=== PATIENT | female | born 1980 | race Caucasian/White ===

== ENCOUNTER 2023-12-09 08:50 | Emergency (ER) | payer OTHER, SELFPAY ==
[2023-12-09 08:52] VITALS: BP 138/79
--- NOTE | 2023-12-09 09:11 | ED.GENMED ---
History of Present Illness
General
Chief Complaint: Skin Problem
Source: patient
Exam Limitations: none
Time Seen by Provider: 12/09/23 08:56
Nursing documentation reviewed up to this point in time: agreed with
History of Present Illness
History of Present Illness:
43-year-old female presenting to the emergency department today with concerns of discomfort to the left axilla. Ongoing over the past 2 days. No fevers mild redness to the area mild tenderness. No systemic symptoms.
Past History
Past History
ED Past Medical History: Other (MS )
Social History
Tobacco: Non-smoker
Drug: None
Living: with family
Review of Systems
Review of Systems
Allergies reviewed?: Yes
All Other Systems: ROS reviewed and negative except as documented in HPI and ROS
Phy Exam
Physical Exam
Physical Exam:
GENERAL: Alert , in no apparent distress
EYE: pupils equal and reactive
NECK: Supple, no significant adenopathy.
ENT: o/p clr, mmm.
CARDIAC: Regular rate and rhythm .
LUNGS: Clear breath sounds bilaterally, no acute respiratory distress, no wheezes/rales/rhonchi
ABDOMEN: Soft, without focal tenderness, no r/g, no cvat
NEUROLOGICAL: Alert and oriented, no focal neuro deficits
SKIN: Swelling mild tenderness palpation to the left axilla mild redness. Warm and dry, skin intact.
MUSCULOSKELETAL: No edema, well perfused.
PSYCH: Normal and appropriate interaction.
Course
Orders/Labs/Results
Orders:
Orders
12/09/23 09:10
Doxycycline [Vibramycin] 100 mg PO NOW STA
Vital Signs
Initial and Last Documented VS:
Initial Vital Signs
Temp Pulse Resp BP Pulse Ox
98.3 F 98 16 138/79 98
12/09/23 08:52 12/09/23 08:52 12/09/23 08:52 12/09/23 08:52 12/09/23 08:52
Last Documented Vital Signs
Temp Pulse Resp BP Pulse Ox
98.3 F 98 16 138/79 98
12/09/23 08:52 12/09/23 08:52 12/09/23 08:52 12/09/23 08:52 12/09/23 08:52
MDM/Problems Addressed
MDM/Problems Addressed:
43-year-old female presenting to the emergency department today with concerns of left axillary discomfort and swelling over the past 2 days. Some mild redness to the area and tenderness. Ultrasound was used at the area without any evidence of
drainable abscess but some evidence of inflammation to the area. Patient was started on antibiotics otherwise advised for close outpatient follow-up. Return precautions given.
*Critical Care Note
Total Time (30-74mins, 75-104mins- exclusive of procedures): Not Applicable
ED Attending Note
-
Portions of this chart may have been created with voice recognition software.� Occasional wrong word or��sound alike� substitutions may have occurred due to the inherent limitations of voice recognition software.
Discharge Plan
Departure
Patient Disposition: Home (Routine Discharge)
Date of Disposition: 12/09/23
Time of Disposition: 09:13
Patient with high blood pressure during this ER visit?: No
Condition: Good
Covid-19: Not Applicable
Discharge Problem:
Axillary adenitis
Instructions: Cellulitis (Skin Infection), Adult (DC)
Prescriptions:
New
doxycycline hyclate 100 mg tablet
100 mg PO BID 7 Days Qty: 14 0RF
No Action
ondansetron 8 MG tablet,disintegrating
8 mg PO Q8H PRN (Reason: pain)
hydromorphone 2 MG tablet
2 mg PO Q4HPRN PRN (Reason: pain)
dalfampridine [Ampyra] 10 MG tablet extended release 12 hr
10 mg PO DAILY
Hydrocodone/Acetaminophen
1 - 2 tab PO Q4H PRN (Reason: pain)
Patient Comments:
dosage 10-500 mg
diazepam 5 MG tablet
5 mg PO TIDPRN PRN (Reason: spasm or burning) Qty: 15 0RF
Activity Restrictions/Additional Instructions:
You came to the emergency department today with concerns of left-sided axillary discomfort. There is no signs of drainable abscess. You were started on doxycycline. Please follow close with the primary care doctor within 1 week for reassessment.
Return to the emergency department for any worsening, new or concerning symptoms.
Interventions
Interventions:
*Risk Screen - Suicide Last Done: 12/09/23 08:52
*Neglect/Abuse Screening Last Done: 12/09/23 08:52
Discharge Date and Time
Print Language: BURMESE
[2023-12-09] MEDS: VIBRAMYCIN 100 MG PO (09:34)
== END 2023-12-09 09:50 | disposition home or self-care (01) ==
LOC: EMR 08:50
PROVIDERS: EMERGENCY PHYSICIAN Emergency Medicine; FAMILY PHYSICIAN Family Medicine
DX: I88.9 Nonspecific lymphadenitis, unspecified (principal); G35 Multiple sclerosis
CPT/HCPCS: 99283

== ENCOUNTER → 2023-12-30 14:09 | Outpatient (REF) | payer OTHER, SELFPAY | LOC: WDC 14:09 | PROVIDERS: ATTENDING PHYSICIAN Family Medicine | DX: R22.32 Localized swelling, mass and lump, left upper limb (principal) | CPT/HCPCS: 76642; 77062; 77066 ==

== ENCOUNTER → 2024-08-16 20:28 | Outpatient (REF) | payer OTHER, SELFPAY | LOC: MRI 20:28 | PROVIDERS: ATTENDING PHYSICIAN Neurological Surgery | DX: G35 Multiple sclerosis (principal); M79.601 Pain in right arm; M62.81 Muscle weakness (generalized); R20.0 Anesthesia of skin | CPT/HCPCS: 70553; A9575 ==

== ENCOUNTER → 2024-08-20 10:32 | Outpatient (REF) | payer OTHER, SELFPAY | LOC: MRI 3T 10:32 | PROVIDERS: ATTENDING PHYSICIAN Neurological Surgery; FAMILY PHYSICIAN Family Medicine | DX: G35 Multiple sclerosis (principal); M79.601 Pain in right arm; R20.0 Anesthesia of skin | CPT/HCPCS: 72156; A9575 ==

== ENCOUNTER → 2024-10-19 16:16 | Outpatient (REF) | payer OTHER, SELFPAY | LOC: RAD 16:16 | PROVIDERS: ATTENDING PHYSICIAN Neurological Surgery; FAMILY PHYSICIAN Family Medicine | DX: G35 Multiple sclerosis (principal); M79.621 Pain in right upper arm | CPT/HCPCS: 73030; 73110 ==